=== PATIENT | male | born 1985 | race Caucasian/White ===

== ENCOUNTER 2016-12-08 15:55 | Emergency (ER) | payer MEDICAID, OTHER ==
[~2016-12-08] VITALS: Ht 172.7 cm; Wt 83.0 kg
[~2016-12-08 15:55] MED LIST: ACET500C5 PO; ONDA8TAB14 PO
[2016-12-08 15:59] VITALS: Ht 172.7 cm; Wt 83.0 kg
[2016-12-08] MEDS ORDERED: ACETAMINOPHEN 325 MG TAB PO ONE (17:30)
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
--- NOTE | 2016-12-08 18:15 | RADRPT ---
PROCEDURE: CT Brain without contrast. CLINICAL INDICATION: Trauma. Headache. TECHNIQUE: A CT of the brain without contrast was performed utilizing axial sections from the skul l base through the vertex. The patient was scanned without intravenous contrast enhancement. Sagitta l and coronal reformatted images were obtained using the data from the axial images. Total exam DLP is 720.23 mGy-cm. CTDIvol is 44.33 mGy. One or more of the following dose reduction techniques we re used: Automated exposure control, adjustment of the mA and/or kV according to patient size, use o f iterative reconstruction technique. COMPARISON: None available FINDINGS: There is normal robles-white matter differentiation. The ventricles and cisterns are normal. There is no intracranial hemorrhage or space-occupying lesion. There is no skull fracture or lytic lesion. IMPRESSION: 1. Normal noncontrast CT scan of the brain. 2. No intracranial hemorrhage. RPTAT: QQ .Ag Berkowitz MD, MD Date Time Electronically viewed and signed by .Ag Berkowitz MD, on 12/08/2016 18:14 .R/
--- NOTE | 2016-12-08 18:16 | RADRPT ---
PROCEDURE: CT Cervical Spine without contrast. CLINICAL INDICATION: Trauma. Neck pain. TECHNIQUE: Helical axial sections were obtained through the cervical spine without intravenous con trast enhancement. Sagittal and coronal reformatted images were accomplished using the data from th e axial images. Total exam DLP is 444.21 mGy-cm. CTDIvol is 22.15 mGy. One or more of the followi ng dose reduction techniques were used: Automated exposure control, adjustment of the mA and/or kV a ccording to patient size, use of iterative reconstruction technique. COMPARISON: No prior studies are available for comparison. FINDINGS: There is normal stature and alignment of the vertebrae. There is no fracture. The disk height is normal. There is no lytic or blastic lesion. The paravertebral soft tissues are normal. IMPRESSION: 1. Unremarkable CT scan of the cervical spine. RPTAT: QQ .Ag Berkowitz MD, MD Date Time Electronically viewed and signed by .Ag Berkowitz MD, on 12/08/2016 18:16 .R/
[2016-12-08] MEDS ORDERED: IBUP400T22 PO (18:23)
[2016-12-08 18:33] VITALS: BP 154/93; PULSE 69; RESP 18
== END 2016-12-08 18:33 | disposition home or self-care (01) ==
LOC: FTE 15:55
DX: S06.0X1A Concussion with loss of consciousness of 30 minutes or less, initial encounter (principal); G44.209 Tension-type headache, unspecified, not intractable; W18.39XA Other fall on same level, initial encounter; Y92.9 Unspecified place or not applicable
CPT/HCPCS: 70450; 72125; Z7502; Z7610